=== PATIENT | female | born 1995 | race Caucasian/White ===

== ENCOUNTER → 2017-09-19 15:24 | Outpatient (CLI) | payer BC, SELFPAY ==
[2017-09-19 16:06] LABS: Mean Corpuscular HGB Conc 34.9 % (30-36); Mean Corpuscular Hemoglobin 30.8 PG (26-34); Mean Corpuscular Volume 88.2 fL (80-100); Platelet Count 234 X10^3/uL (150-400); Red Blood Cell Count 4.54 X10^6/uL (4.0-5.2); Red Cell Distribution Width 12.9 % (11.6-14.8); White Blood Cell Count 5.6 X10^3/uL (4.5-11.0)
== END ==
PROVIDERS: Visit Provider Orthopaedic Surgery
DX: Z01.812 Encounter for preprocedural laboratory examination (principal); Z01.818 Encounter for other preprocedural examination
CPT/HCPCS: 36415; 85027

== ENCOUNTER → 2017-11-27 16:09 | Outpatient (CLI) | payer BC, SELFPAY ==
[2017-11-27 17:13] LABS: BUN Creatinine Ratio 13.3 (6-22); Blood Urea Nitrogen 8 mg/dL (7-17); Calcium 10.1 mg/dL (8.4-10.2); Carbon Dioxide 28 mmol/L (22-32); Chloride 102 mmol/L (98-107); Estimated Glomerular Filt Rate > 60.0 mL/min (>60); Glucose 90 mg/dL (70-100); HEMOLYSIS < 15 (0-50); Potassium 4.8 mmol/L (3.4-5.1); Sodium 142 mmol/L (137-145)
[2017-11-27 17:42] LABS: Thyroid Stimulating Hormone 1.42 uIU/mL (0.47-4.68)
== END ==
PROVIDERS: Family Provider Internal Medicine; PCP Internal Medicine; Visit Provider Psychiatry & Neurology Psychiatry
DX: F32.9 Major depressive disorder, single episode, unspecified (principal)
CPT/HCPCS: 36415; 80048; 84443

== ENCOUNTER → 2018-06-25 14:51 | Outpatient (CLI) | payer BC, SELFPAY ==
--- NOTE | 2018-06-25 14:55 | DI.US.S_ITS ---
PROCEDURE: US PELVIC COMPLETE INDICATIONS: MISSING IUD STRINGS TECHNIQUE: Real-time scanning was performed of the pelvic organs, with image documentation. Additional endovaginal scanning was necessary due to incomplete visualization of the adnexal and endometrial structures by transabdominal scanning. COMPARISON: [facility], US, US PELVIC COMPLETE, 07/12/2017, 13:45. FINDINGS: Transabdominal scanning: Limited scanning through the kidneys shows no hydronephrosis. No pathologic free abdominal or pelvic fluid. Endovaginal scanning: Uterus: Uterus is normal in size at 7.7 x 3.3 x 4.1 cm. The endometrium measures 2.9 mm in combined thickness. Intrauterine device in expected position. Ovaries: Normal ovaries bilaterally measuring 3.5 x 2.0 x 3.3 cm on the right and 3.5 x 2.4 x 1.6 cm on the left. IMPRESSION: Expected positioning of intrauterine device. Dictated by: Lenny FINCH Interpreted: Jass Starr MD on 06/25/2018 at 15:49 Approved by: Jass Starr M.D. on 06/25/2018 at 17:01
== END ==
PROVIDERS: Family Provider Internal Medicine; PCP Internal Medicine; Visit Provider Obstetrics & Gynecology
DX: T83.32XA Displacement of intrauterine contraceptive device, initial encounter (principal)
CPT/HCPCS: 76830; 76856

== ENCOUNTER → 2020-02-06 10:04 | Outpatient (CLI) | payer BC, SELFPAY ==
[2020-02-06 10:50] LABS: COVID19 -Nasal RAPID Negative (Negative)
== END ==
PROVIDERS: Family Provider Internal Medicine; PCP Registered Nurse; Referring Provider Surgery; Visit Provider Surgery
DX: Z11.59 Encounter for screening for other viral diseases (principal); Z01.812 Encounter for preprocedural laboratory examination
CPT/HCPCS: 87635; C9803

== ENCOUNTER 2020-02-07 06:50 | Day surgery (SDC) | payer BC, SELFPAY ==
[2020-02-07] VITALS (7 sets, daily range): BP systolic 109–140; BP diastolic 58–75; PULSE 67–100; RESP 12–22; TEMP 36.4–37.1; O2SAT 99–100; BMI 19.3
--- NOTE | 2020-02-07 | PATH_ITS ---
[facility] Accession Number: [id number] . 01 Material submitted: . PART A: colon - 28 CM COLON POLYP PART B: rectum - 10 CM RECTAL POLYP PART C: rectum - RECTAL MUCOSA BIOPSY . 02 Diagnosis: A. Colon Polyp at 28 cm, Biopsy: Tubular adenoma. . B. Rectal Polyp at 10 cm, Polypectomy: Tubulovillous adenoma. Negative for high-grade dysplasia or malignancy. The polypectomy appears complete. . C. Rectum, Biopsy: Colonic mucosa with no diagnostic abnormality. Negative for active, chronic, and microscopic colitis. Negative for dysplasia and malignancy. . MRV 02/11/2020 0943 Local . 02 Electronically signed: . Zack Boateng MD, PhD, Pathologist NPI- [id number] . 01 Gross description: . Part A: 28 CM COLON POLYP: Received in formalin is 1 fragment(s) of estes, soft tissue measuring 0.4 x 0.3 x 0.2 cm submitted entirely in 1 cassette(s) Part B: 10 CM RECTAL POLYP: Received in formalin is 1 fragment(s) of estes, soft tissue measuring 0.8 x 0.5 x 0.7 cm which is inked, trisected and submitted entirely in 1 cassette(s) Part C: RECTAL MUCOSA BIOPSY: Received in formalin are 2 fragment(s) of estes, soft tissue measuring 0.4 x 0.2 x 0.1 cm to 0.3 x 0.3 x 0.2 cm submitted entirely in 1 cassette(s) /QBJ 02/08/2020 0802 Local . 02 Pathologist provided ICD-10: D12.6, D12.8 . 02 CPT . 040059, 813073, [id number] Performed at: 01 [facility] [address] [place] [address], [place], [place] [id number] MD Darion Lala MD Phone: [phone] Performed at: [facility] [address] [place], [place] [id number] MD Radha Ibrahim MD Phone: [phone]
[2020-02-07] MEDS: SODIUM CHLORIDE 0.9% 1,000 ML 200 ML IV (07:15)
--- NOTE | 2020-02-07 07:38 | PM.PREOP ---
Pre-operative Note COVID-19 COVID-19 status: Negative Result date/Date tested (Pos, Neg/Pending): 02/06/20 Interval Note History & Physical reviewed/Exam performed by Physician: Yes Changes to H&P: No ASA Class (for procedural sedation): I
--- NOTE | 2020-02-07 07:39 | PM.OP.ENDO ---
Operative Date/Time/Diagnoses Date of procedure: 02/07/20 Time of procedure: 07:40 Pre-op diagnosis: rectal bleeding Post-op diagnosis: other (Subcentimeter Colon polyp, 1 cm bleed rectal polyp) Procedure & Clinicians Study performed: Colonoscopy Procedural sedation performed by the endoscopist Polypectomy with cold forceps at 28 cm Polypectomy with hot snare at 10 cm Rectal biopsy with cold forceps at 10 cm Tattoo with ink spot at 10 cm in the rectum Same procedure as scheduled: Yes Indications: Unexplained rectal bleeding Surgeon: Jennie Villaseñor Procedure Notes SCOAP/Timeout: Performed Procedure in detail: The patient was brought to the room and placed in left lateral decubitus position with all bony prominences padded. A time-out was performed and then the patient was given procedural sedation starting with 4 mg of Versed and 1 mcg of fentanyl. A total of 8 mg of Versed and 200 micro g of fentanyl were given for the entire procedure. Vitals were monitored throughout the procedure and remained stable. Once adequately sedated, the procedure was begun. A rectal exam was performed revealing [no abnormalities]. The colonoscope was then introduced to the rectum and advanced to the cecum in the usual fashion. The cecum was identified by the appendiceal orifice, the mucosal tri-fold, and the ileocecal valve. The scope was then retracted while rotating side to side and examining each mucosal fold. At 28 cm in the descending colon a 5 mm polyp was seen and removed with cold forceps. At 10 cm in the rectum a 1 cm pedunculated polyp was removed completely with hot snare. The base of the polypectomy site was biopsied with cold forceps. [Ink spot was used to place a tattoo at the site of this polypectomy and biopsy in the rectum. At the conclusion of the procedure retroflexion was performed andsmall grade 1 internal hemorrhoids without stigmata of bleeding were seen]. The scope was then withdrawn from the rectum the procedure was concluded. The patient tolerated the procedure well and was transferred to the PACU in stable condition. Scope withdrawal time: 17 Sedation minutes: 34 Findings: polyp Specimen(s): other (1 cm polyp from the rectum, subcentimeter polyp from the descending colon) Complications: none Impression: The patient is likely source of bleeding was from the 1 cm rectal polyp which had stigmata of recent bleeding. Post-procedure Recommendations: Other recommendation (Follow-up recommendations will depend on the biopsy results) Follow up: weeks (two) Disposition: PACU
[2020-02-07] MEDS: fentaNYL 250 MCG/5 ML INJ IV (07:58)
[2020-02-07] MEDS: MIDAZOLAM 5 MG/5 ML VIAL IV (07:58)
== END 2020-02-07 09:12 | disposition home or self-care (01) ==
PROVIDERS: Family Provider Internal Medicine; PCP Registered Nurse; Referring Provider Registered Nurse; Visit Provider Surgery
PROC: 0DJD8ZZ Inspection of Lower Intestinal Tract, Via Natural or Artificial Opening Endoscopic (ICD-10-PCS; CPT 45378; principal; 2020-02-07 07:45)
DX: D12.8 Benign neoplasm of rectum (principal); F41.9 Anxiety disorder, unspecified; R63.4 Abnormal weight loss; D68.51 Activated protein C resistance; K64.0 First degree hemorrhoids; D12.6 Benign neoplasm of colon, unspecified
CPT/HCPCS: 45381; 45385; 45380; 99152; 99153; J2250; J3010

== ENCOUNTER → 2021-03-17 09:34 | Outpatient (CLI) | payer BC, SELFPAY ==
[2021-03-17 10:38] LABS: COVID19 -Nasal RAPID Negative (Negative)
== END ==
PROVIDERS: Family Provider Internal Medicine; PCP Registered Nurse; Visit Provider Surgery
DX: Z01.812 Encounter for preprocedural laboratory examination (principal); Z20.822 Contact with and (suspected) exposure to COVID-19
CPT/HCPCS: 87635; C9803

== ENCOUNTER 2021-03-18 08:22 | Day surgery (SDC) | payer BC, SELFPAY ==
[2021-03-18] VITALS (9 sets, daily range): BP systolic 87–112; BP diastolic 43–78; PULSE 55–68; RESP 11–18; TEMP 36.4–36.8; O2SAT 95–99; BMI 21.9
[2021-03-18] MEDS: LACTATED RINGERS 1,000 ML 84 ML IV (08:55)
--- NOTE | 2021-03-18 10:09 | PM.HP.1 ---
History of Present Illness History of Present Illness Date Patient Seen: 03/18/21 Time Patient Seen: 10:09 Date of Onset of Symptoms: 03/18/21 Chief complaint: SDC Narrative: Yissel is a 25-year-old woman who had a colonoscopy by Dr. Villaseñor just over a year ago for rectal bleeding. Polyp was removed and the path came back as tubular adenoma. She was told to repeat her colonoscopy at a year. She reports she does still have occasional rectal bleeding. Patient History Family & Social History Family History Mother Hypertension Grandmother Heart disease Grandfather Heart disease Social History: household members none Tobacco & Substance use: Smoking Status Never smoker alcohol intake current alcohol intake frequency a few times a week Substance Use Type marijuana Meds Home Medications and Allergies Home Medications Medication Instructions Recorded Confirmed Type levonorgestrel 20 mcg/24 hours (7 INTRAUTERINE 11/08/19 06/22/20 History yrs) 52 mg intrauterine device (Mirena) Allergies Allergy/AdvReac Type Severity Reaction Status Date / Time No Known Drug Allergies Allergy Verified 06/22/20 12:09 Exam Vital Signs (past 8 hours): - 03/18/21 08:58 Temperature 97.8 F Pulse Rate 68 Respiratory Rate 18 Blood Pressure 112/78 Pulse Oximetry 99 Oxygen Delivery Method Room Air Const General: healthy appearing Eyes General: appearance normal, both eyes and all related structures Resp Effort & Inspection: normal respiratory effort Assessment & Plan Assessment and plan (1) Rectal bleeding: Status: Acute Plan 25-year-old woman with a history of a tubular adenoma and rectal bleeding who is here for her surveillance colonoscopy. We reviewed the risks and benefits and she would like to proceed. COVID-19 COVID-19 status: Negative Result date/Date tested (Pos, Neg/Pending): 03/17/21 Time Spent With Patient Critical Care time: I spent a total of [] minutes of critical care time on this patient's care today; this time is exclusive of procedural time.
[2021-03-18] MEDS: MIDAZOLAM 5 MG/5 ML VIAL IV (10:28)
[2021-03-18] MEDS: fentaNYL 250 MCG/5 ML INJ IV (10:28)
--- NOTE | 2021-03-18 10:43 | P.OP.COLON_ITS ---
Operative Date/Time/Diagnoses Date of procedure: 03/18/21 Time of procedure: 10:43 Pre-op diagnosis: History colorectal polyps Post-op diagnosis: same Procedure & Clinicians Study performed: Colonoscopy Same procedure as scheduled: Yes Indications: History of colorectal polyps Surgeon: Asad Vance Procedure Notes SCOAP/Timeout: Yes Procedure in detail: Procedure: The patient was brought to the endoscopy suite, placed in left lateral decubitus position. The patient was connected to monitoring devices. A time-out was performed. Sedation was administered. Once the patient was adequately sedated, a digital rectal exam was performed and was normal. The scope was then inserted and advanced to the cecum where the appendiceal orifice was identified and photographed. The scope was then slowly withdrawn over g reater than 6 minutes. Mucosa was thoroughly inspected. Were no polyps noted. There is a scar where a prior biopsy had been performed in the sigmoid colon and there was some tattoo ink in the rectum from the prior colonoscopy but no evidence of recurrent or DeNovo polyps noted. The scope was retroflexed in the rectum. No abnormalities were noted. The scope was straightened and removed. The patient was awakened and brought to recovery. Versed: 12 mg Fentanyl: 275 mcg EBL: 0 Findings: No polyps Scope withdrawal time: 13 Sedation minutes: 27 Specimen(s): none sent Impression: No polyps Post-procedure Recommendations: Colonoscopy in 5 years Disposition: PACU
== END 2021-03-18 12:00 | disposition home or self-care (01) ==
PROVIDERS: Family Provider Internal Medicine; PCP Registered Nurse; Referring Provider Surgery; Visit Provider Surgery
PROC: 0DJD8ZZ Inspection of Lower Intestinal Tract, Via Natural or Artificial Opening Endoscopic (ICD-10-PCS; CPT 45378; principal; 2021-03-18 09:15)
DX: K62.5 Hemorrhage of anus and rectum (principal); Z86.010 Personal history of colon polyps
CPT/HCPCS: 45378; 81025; 99152; 99153; J2250; J3010